=== PATIENT | male | born 1960 | race Caucasian/White ===

== ENCOUNTER 2016-07-22 13:46 | Emergency (ER) | payer BC ==
--- NOTE | ~2016-07-22 | CR2 ---
[facility] A Service [facility] RADIOLOGY TEXT RESULTS PATIENT: LEO FORBES LOCATION: SED : 56 UNIT #: [id number] AGE: [address]: Derian Israel MD SEX: M ORDER DR: [id number] [place] [id number] E MR#: [id number] Acc #: [id number] NAME: LEO FORBES : 1960 SEX: M STUDY DATE/TIME: 07/22/2016 14:20 UNIT: SED ROOM: STUDY DESCRIPTION: CR Abdomen Acute Series Attending Physician: Derian Israel M.D. Ordering Physician: Derian Israel M.D. Primary Care Physician: Delonte Dawson M.D. MEDICAL IMAGING REPORT This report is preliminary unless electronic signature is present. EXAM Acute abdominal series HISTORY Vomiting since 2:30 a.m. today. COMPARISON STUDIES 01/31/2016. FINDINGS PA view of the chest and flat and upright views of the abdomen were obtained. The heart size and vascularity are normal. The lungs are clear. The bowel gas pattern is nonspecific. There is some small intestinal gas present but there is no evidence of obstruction or extension. Vascular stents are present in the pelvis. IMPRESSION No active disease. Nonspecific bowel gas pattern without evidence of obstruction. Dictated by... Rogerio Alicia M.D. THIS IS AN ELECTRONICALLY VERIFIED REPORT Rogerio Alicia M.D. at 07/22/2016 3:55 PM FEL/pcl TD: 07/22/2016 15:23 JOB #: [id number] [facility] A Service [facility] RADIOLOGY TEXT RESULTS PATIENT: LEO FORBES LOCATION: SED : 56 UNIT #: [id number] AGE: [address]: Derian Israel MD SEX: M ORDER DR: MEDICAL IMAGING REPORT Page 1 of 1
[~2016-07-22 13:46] MED LIST: ACETAMINOPHEN PO; ASACOL400 MG PO; ASPIRIN PO; ASPIRINEC PO; BENTYL20 M1 PO; CADUET PO; CHANTEX; CHANTIX PO; CHOLESTEROL MED PO; CIPRO PO; COUMADIN PO; DICLOFENAC PO; FAMOTIDINE PO; FAMOTIDINE20 MG PO; FLAGYL PO; FLEXERIL PO; FLOMAX PO; FLOMAX0.4 M1 PO; HIGH CHOLESTEROL; KEFLEX500 M1 PO; LORTAB 2.5/5001 TAB PO; LORTAB 7.5-5001 TAB PO; MELOXICAM15 MG PO; NEXIUM PO; NITROGYLCERIN SUBLINGUAL; NORVASC PO; OMEPRAZOLE10 M1 PO; PHENERGAN25 M1 PO; PLAVIX PO; PRAVASTATIN SOD40 MG PO; PREVACID PO; PRILOSEC PO; TYLENOL PM; ULTRAM PO; ZOFRAN PO; ZYRTEC PO; ZYRTEC10 M1 PO
[2016-07-22 14:05] LABS: BASOPHIL# 0.1 X10e3 (0-0.3); BASOPHIL% 1.2 % (0-2.5); EOSINOPHIL# 0.1 X10e3 (0-0.7); EOSINOPHIL% 1.2 % (0.0-7.0); HEMATOCRIT 42.7 % (38.0-50.0); HEMOGLOBIN 14.6 gm/dL (13.0-16.0); LYMPHOCYTE# 2.6 X10e3 (1.0-3.5); LYMPHOCYTE% 27.1 % (17.0-45.0); MEAN CELL VOLUME 88.6 FL (83-96); MEAN CORPUSCULAR HEMOGLOBIN 30.4 PG (28-34); MEAN CORPUSCULAR HGB CONC 34.3 g/dL (30-36); MEAN PLATELET VOLUME 7.4 FL (6.5-11.5); MONOCYTE# 0.6 X10e3 (0-1.0); MONOCYTE% 6.6 % (3.0-12.0); NEUTROPHIL# 6.2 X10e3 (1.5-7.1); NEUTROPHIL% 63.9 % (40-75); PLATELET COUNT 387 X10e3 (140-420); RED BLOOD COUNT 4.82 X10e (3.90-5.60); RED CELL DISTRIBUTION WIDTH 14.7 % (11.0-15.5); WHITE BLOOD COUNT 9.7 X10e3 (4.0-10.5)
[2016-07-22 14:07] LABS: DIFF IND NO
[2016-07-22 14:23] LABS: ALBUMIN SERUM 4.4 g/dL (3.5-5.0); BILIRUBIN, DIRECT 0.1 mg/dL (0.0-0.2); BILIRUBIN,INDIRECT 0.6 mg/dL (0.0-0.9); BILIRUBIN,TOTAL 0.7 mg/dL (0.2-2.0); BUN/CREATININE RATIO 14.28; CALCIUM SERUM 9.3 mg/dL (8.4-10.2); CREATININE SERUM 0.7 mg/dL (0.6-1.4); GLOM FILT RATE Estimated 104.1 mL/min (>60); PROTEIN TOTAL SERUM 7.9 g/dL (6.0-8.3)
[2016-07-22 14:49] LABS: URINE SOURCE CLEAN CATCH
[2016-07-22 14:51] LABS: URINE APPEARANCE CLEAR; URINE BILIRUBIN NEG (NEG); URINE BLOOD NEG (NEG); URINE COLOR YELLOW; URINE GLUCOSE NEG (NORM); URINE KETONE NEG (NEG); URINE LEUKOCYTE ESTERASE NEG (NEG); URINE NITRATE NEG (NEG); URINE PH 8.5 (5-8); URINE SPECIFIC GRAVITY 1.015 (1.003-1.035); URINE UROBILINOGEN 0.2 MG/DL (NORM)
[2016-07-22 14:52] LABS: MICRO INDICATED? NO; URINE PROTEIN NEG (NEG)
== END 2016-07-22 16:08 | disposition home or self-care (01) ==
LOC: SED 13:46
PROVIDERS: Emergency Medicine
DX: R10.84 Generalized abdominal pain (principal); R11.2 Nausea with vomiting, unspecified; I10 Essential (primary) hypertension; E03.9 Hypothyroidism, unspecified; I73.9 Peripheral vascular disease, unspecified; F17.200 Nicotine dependence, unspecified, uncomplicated; Z98.890 Other specified postprocedural states; Z79.82 Long term (current) use of aspirin; Z79.02 Long term (current) use of antithrombotics/antiplatelets; Z79.899 Other long term (current) drug therapy
CPT/HCPCS: 36415; 74022; 80048; 80076; 81003; 83690; 85025; 96361; 96374; 96375; 99284; J2270; J2405; J2550